=== PATIENT | female | born 1970 | race African-American/Black ===

== ENCOUNTER 2025-05-22 21:16 | Emergency (ER) | payer BC ==
[~2025-05-22] VITALS: Ht 167.6 cm; Wt 102.1 kg
[2025-05-22 21:43] VITALS: TEMP 98.7
[2025-05-22 23:15] VITALS: BP 175/67; O2SAT 100
== END 2025-05-22 23:15 | disposition home or self-care (01) ==
LOC: ER 21:21
DX: I10 Essential (primary) hypertension (principal); F32.A Depression, unspecified; F41.9 Anxiety disorder, unspecified; G47.00 Insomnia, unspecified; Z88.6 Allergy status to analgesic agent